=== PATIENT | male | born 1950 | race Caucasian/White ===

== ENCOUNTER 2016-10-24 09:57 | Emergency (ER) | payer OTHER, SELFPAY ==
--- NOTE | 2016-11-04 21:34 | ER ---
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 See T-sheet for remainder of history and physical. Suture was placed number four, 4-0 Prolene by the PA student under direct observation of the physician. The patient was instructed to remove the sutures in 10 days, keep the area clean and dry. DIAGNOSIS: Laceration with subsequent repair. Brady Larry MD/ shanel JOB #: [id number] CC: Brady Larry MD, Attending Physician Roni Fernandez DO, Family Physician
== END 2016-10-24 10:40 | disposition home or self-care (01) ==
LOC: ER 09:57
PROC: 0HQGXZZ Repair Left Hand Skin, External Approach (ICD-10-PCS; principal; 2016-10-24)
DX: S61.412A Laceration without foreign body of left hand, initial encounter (principal); W45.8XXA Other foreign body or object entering through skin, initial encounter; Y99.0 Civilian activity done for income or pay